=== PATIENT | male | born 1995 | race Two or more races ===

== ENCOUNTER 2017-05-22 17:01 | Emergency (ER) | payer OTHER ==
[~2017-05-22] VITALS: Ht 172.7 cm; Wt 83.9 kg
[2017-05-22] MEDS ORDERED: HYDROcodone-ACET 5/325MG TAB PO ONE (21:45)
[2017-05-22 23:28] VITALS: BP 112/67
== END 2017-05-23 00:16 | disposition home or self-care (01) ==
LOC: ER 17:14
DX: S16.1XXA Strain of muscle, fascia and tendon at neck level, initial encounter (principal); S00.03XA Contusion of scalp, initial encounter; Y08.89XA Assault by other specified means, initial encounter; Y93.89 Activity, other specified; Y92.89 Other specified places as the place of occurrence of the external cause; Y99.8 Other external cause status
CPT/HCPCS: 70450; 72125